=== PATIENT | male | born 1980 | race Caucasian/White ===

== ENCOUNTER → 2018-03-08 | Outpatient (CLI) | payer BC ==
[2015-12-26 10:41] VITALS: BMI 30.0
[~2018-03-08] MED LIST: ESCI10TA8 PO; MOMR ENA
[2018-03-08 16:51] LABS: PLATELET COUNT, AUTOMATED 237 K/uL (150-450)
== END ==
LOC: LAB 16:16
PROVIDERS: ATTEND Internal Medicine
DX: F41.9 Anxiety disorder, unspecified (principal); Z87.898 Personal history of other specified conditions
CPT/HCPCS: 36415; 82040; 82247; 82310; 82374; 82435; 82565; 82947; 84075; 84132; 84155; 84295; 84443; 84450; 84460; 84520; 85025

== ENCOUNTER → 2018-03-15 | Outpatient (CLI) | payer BC ==
[2015-12-26 10:41] VITALS: BMI 30.0
== END ==
LOC: RESP 02:47
PROVIDERS: ATTEND Internal Medicine
DX: G47.33 Obstructive sleep apnea (adult) (pediatric) (principal)

== ENCOUNTER → 2018-08-02 | Outpatient (CLI) | payer BC ==
[2015-12-26 10:41] VITALS: BMI 30.0
[~2018-08-02] MED LIST changes: +AMOX-362 PO; +BUS5 PO; +[UNRECOGNIZED DRUG - OTHER] TOP
== END ==
LOC: LAB 11:24
PROVIDERS: ATTEND Surgery
DX: Z02.9 Encounter for administrative examinations, unspecified (principal)

== ENCOUNTER 2018-08-09 03:04 | Day surgery (SDC) | payer BC ==
[2015-12-26 10:41] VITALS: Ht 175.3 cm; Wt 93.9 kg
[2018-08-02 12:01] LABS: PLATELET COUNT, AUTOMATED 259 K/uL (150-450)
[2018-08-02 12:08] LABS: INR 0.9
[~2018-08-09] VITALS: Ht 175.3 cm; Wt 93.9 kg
[2018-08-09 06:43] VITALS: BP 128/84
[2018-08-09] MEDS ORDERED: ceFAZolin(*) 2GM/D5W 50ML 50 ML IVPB ONE (06:45)
[2018-08-09] MEDS ORDERED: LIDOCAINE/SOD BICARB 8.4% SYR ID ONE (06:45)
[2018-08-09] MEDS ORDERED: PREGABALIN 150 MG CAPSULE PO ONE (06:45)
[2018-08-09] MEDS ORDERED: NORMOSOL R SOLN(*) 1000 ML BAG 1,000 ML IV PRN (06:45)
[2018-08-09] MEDS ORDERED: ACETAMINOPHEN 500 MG TAB PO ONE (06:45)
[2018-08-09] MEDS ORDERED: FAMOTIDINE 20 MG TAB PO ONE (06:45)
[2018-08-09] MEDS ORDERED: MIDAZOLAM 2 MG/2 ML VIAL IVP PRN (06:45)
[2018-08-09] MEDS ORDERED: ONDANSETRON 4 MG/2 ML VIAL ONE (07:03)
[2018-08-09] MEDS ORDERED: PROPOFOL EMUL(*) 10MG/ML 20 ML 20 ML ONE (07:03)
[2018-08-09] MEDS ORDERED: fentaNYL CITR 250 MCG/5 ML AMP ONE (07:03)
[2018-08-09] MEDS ORDERED: LIDOCAINE MPF 1% 5 ML VIAL ONE (07:03)
[2018-08-09] MEDS ORDERED: DEXAMETHASONE SOD PHOS 10MG/ML ONE (07:03)
[2018-08-09] MEDS ORDERED: KETAMINE HCL 200 MG/20 ML MDV ONE (07:07)
[2018-08-09] MEDS ORDERED: HALOPERIDOL LACT 5 MG/ML VIAL IM ONE (07:08)
[2018-08-09] MEDS ORDERED: ROPIVACAINE 0.5% 20 ML VIAL ONE (07:21)
[2018-08-09] MEDS ORDERED: SUGAMMADEX SOD 200 MG/2 ML SDV ONE (07:55)
[2018-08-09] MEDS ORDERED: fentaNYL CITR 100 MCG/2 ML AMP ONE ×2 (09:13→09:25)
[2018-08-09] MEDS ORDERED: OXYC-854 PO (09:18)
[2018-08-09] MEDS ORDERED: DOCU-416 PO (09:18)
--- NOTE | 2018-08-09 09:20 | Short(Outpt) Discharge Summary ---
Discharge Summary Reason for Hosp/Final Diag: (1) Right inguinal hernia Status: Chronic Hospital Course & Plan: Robotic RIH repair completed without problems. Departure Discharge to: Home, Self Care Discharge Instructions Home Meds Active Scripts Docusate Sodium (COLACE) 100 Mg Capsule, 1 CAP PO BID, #30 CAP 0 Refills TAKE WITH A FULL GLASS OF WATER Prov:MARY CARMEN PRECIADO MD 08/09/18 Oxycodone Hcl/Acet 5/325 Mg (ENDOCET 5-325 TABLET) 1 Each Tablet, 1 TAB PO Q4H PRN for PAIN, #20 TAB 0 Refills Prov:MARY CARMEN PRECIADO MD 08/09/18 Buspirone Hcl (BUSPIRONE HCL) 5 Mg Tab, 5 MG PO BID PRN for anxiety, #30 TAB Prov:EARL SCHAEFER MD 03/29/18 Reported Medications Amoxicillin (AMOXICILLIN) 500 Mg Capsule, 2 CAP PO Q12H for 10 Days, #20 CAPSULE 08/01/18 Clindamycin Phos (DUAC 1.2-5% GEL) 45 Gr Gel, 45 GR TOP, GEL 08/01/18 Follow up Referrals: General Surgery - 08/29/18 @ Surgery, General with MARY CARMEN PRECIADO MD You have a follow up appointment scheduled with Dr. Preciado on 08/29/18, at 3:3 0pm. Diet: Regular Activity: No Heavy Lifting Special Instructions: You may remove the white surgical dressings on 08/11/18, then you can shower. After showering, leave the incisions open to air but leave the steristrips in place until they fall off on their own. Do not immerse the incisions for 2 weeks. Avoid any activity that involves straining or lifting more than 10 pounds for 2 weeks. MARY CARMEN PRECIADO MD Aug 09, 2018 09:20
--- NOTE | 2018-08-09 09:26 | Post Operative Progress Note ---
Post Operative Progress Note Date: Aug 09, 2018 Time: 09:21 Surgeon: Rivka Dictation number: [id number] Anesthesia: GETA by Dr. Summers Pre-Op Diagnosis: RIH Post-Op Diagnosis: Direct RIH Findings: Direct RIH, no LIH Procedure(s): Robotic RIH repair Specimen Removed:(May be N/A): None Complications: None Fluids: See anesthesia record Estimated Blood Loss: Minimal Date OP Note Dictated: Aug 09, 2018 Time OP Note Dictated: 09:22 MARY CARMEN PRECIADO MD Aug 09, 2018 09:26
--- NOTE | 2018-08-09 10:02 | OPERATIVE REPORT 1 ---
EVENT DATE: August 09, 2018 SURGEON: David Tineo M.D. ANESTHESIOLOGIST: Luis Summers MD ANESTHESIA: General endotracheal. PREOPERATIVE DIAGNOSIS Right inguinal hernia. POSTOPERATIVE DIAGNOSIS Direct right inguinal hernia. PROCEDURE Robotic right inguinal hernia repair. COMPLICATIONS None. CONDITION Stable. ESTIMATED BLOOD LOSS Minimal. FINDINGS Patient had a direct inguinal hernia but no indirect component. INDICATIONS This is a 38-year-old gentleman who presented to my office with a right groin bulge. Exam was consistent with a hernia. He was requesting to have it repaired and I recommended robotic right inguinal hernia repair. DESCRIPTION OF PROCEDURE The patient was brought to the operating room, placed supine on the operating table. General endotracheal anesthesia was administered and his abdomen was prepped and draped in sterile fashion. Time-out was completed and I injected the left left subcostal skin with 0.5% ropivacaine plain. I made a transverse incision in the left subcostal skin to accommodate an 8 mm robotic trocar and port and then used the Veress needle, insufflated the abdomen to a pressure 15 mmHg. I then inserted the 8 mm robotic port with a camera and focused under direct visualization without any problems. I placed another 8 mm robotic port in the right mid clavicular line and subcostal space and on in the epigastric midline so they were all in a line. The patient was placed in Trendelenburg and I checked both groins and there was no hernia on the left but there was an obvious hernia on the right. I then brought in the robot, docked it and targeted the robot and inserted the instruments and went out to the console and continued the case. I divided the peritoneum just medial to the anterior superior iliac spine all the way across the midline and stripped the peritoneum down away from the preperitoneal tissues all the way down and cleaned off the ileopubic tract all the way laterally and cleaned off the pubic tubercle and Chet's ligament medially. I easily identified a direct hernia defect, which I stripped out and cleaned off completely around circumferentially and then identified the peritoneal reflection lateral to the cord structures and followed this medially. It did not proceed up through the internal ring and I skeletonized the cord structures, identified the gonadal vessels and the vas deferens and there was no direct hernia component. I then placed a large piece of ProGrip mesh into this space and deployed it so it laid nice and flat and covered the pubic tubercle Chet's ligament and the ileopubic tract and it covered the entire myopectineal arch with several centimeters of overlap on all sides. The mesh laid nice and flat with no kinks or folds. I then closed the peritoneum with running VLoc absorbable suture and squeezed the insufflated gas out of the preperitoneal space as I closed this. After this was completed, the needle was removed from the patient's abdomen. The robotic instruments were removed. The robot was undocked, the abdomen desufflated, the ports removed and the skin closed with 4-0 Monocryl subcuticular sutures. The skin was clean, dried, and Steri-Strips were applied followed by sterile surgical dressings. The patient was awakened and extubated in the operating room and transported to the recovery room in stable condition, having tolerated the procedure without any apparent problems. SUPA
== END 2018-08-09 10:10 | disposition home or self-care (01) ==
LOC: OR 03:04
PROVIDERS: ATTEND Surgery
DX: K40.90 Unilateral inguinal hernia, without obstruction or gangrene, not specified as recurrent (principal); Z79.899 Other long term (current) drug therapy; F17.210 Nicotine dependence, cigarettes, uncomplicated
CPT/HCPCS: 36415; 49650; 85025; 85610; C1781; J1100; J1630; J2001; J2250; J2405; J2704; J2795; J3010; J3490; 82310; 82374; 82435; 82565; 82947; 84132; 84295; 84520; J0690